=== PATIENT | male | born 1960 | race Caucasian/White ===

== ENCOUNTER 2020-11-22 01:20 | Emergency (ER) | payer OTHER | END 2020-11-22 03:55 | LOC: CSHERS 01:20 | DX: R41.82 Altered mental status, unspecified (principal); I10 Essential (primary) hypertension; E11.9 Type 2 diabetes mellitus without complications; I25.10 Atherosclerotic heart disease of native coronary artery without angina pectoris; J44.9 Chronic obstructive pulmonary disease, unspecified; Z79.4 Long term (current) use of insulin; Z79.82 Long term (current) use of aspirin; Z79.899 Other long term (current) drug therapy | CPT/HCPCS: 70450; 93005 ==

== ENCOUNTER 2022-09-24 06:12 | Emergency (ER) | payer OTHER ==
[2022-09-24 07:04] LABS: #Monocytes 0.6 10x3/uL (0.0-1.1); #Neutrophils 7.6 10x3/uL (1.5-8.4); %Basophils 0.2 % (0.0-2.0); %Eosinophils 0.3 % (0.0-6.0); %Lymphocytes 12.5 % (18.0-47.0); %Neutrophils 80.7 % (40.0-75.0); Hemoglobin 12.9 g/dL (13.5-17.5); Mean Corpuscular HGB CONC 33.9 g/dL (32.0-36.0); Mean Corpuscular Hemoglobin 29.9 pg (27.0-33.0); Mean Corpuscular Volume 88.2 fl (81.2-95.1); Mean Platelet Volume 9.3 fl (7.4-10.4); Platelet Count 168 10x3/uL (150-450); RBC Distribution Width 13.4 % (11.5-14.5); Red Blood Cell (RBC) Count 4.32 10x6/uL (4.32-5.72); White Blood Cell (WBC) Count 9.4 10x3/uL (3.5-10.5)
[2022-09-24 07:22] LABS: Acetaminophen Less than 10.0 mcg/mL (10.0-30.0); Alcohol Less than 10 mg/dL (Less than 10); Magnesium 2.1 mg/dL (1.6-2.6); Salicylate Less than 8.0 mg/dL (15.0-30.0)
[2022-09-24 07:24] LABS: ALT (SGPT) 9 U/L (8-55); AST (SGOT) 12 U/L (5-34); Albumin 3.9 g/dL (3.4-4.8); Alcohol Less than 10 mg/dL (Less than 10); Alkaline Phosphatase 80 U/L (40-110); Anion Gap 17 mmol/L (10-20); BUN (Urea Nitrogen) 26 mg/dL (8.4-25.7); Calc. Creatinine Clearance 0 mL/min (70-130); Calcium 9.1 mg/dL (7.8-10.44); Carbon Dioxide 25 mmol/L (23-31); Chloride 102 mmol/L (98-107); Estimated GFR 86; Globulin 3.3 g/dL (2.4-3.5); Glucose 235 mg/dL (80-115); Potassium 4.8 mmol/L (3.5-5.1); Protein, Total 7.2 g/dL (5.8-8.1); Sodium 139 mmol/L (136-145)
[2022-09-24 07:34] LABS: Bilirubin Neg (Negative); Blood, Urine Negative (Negative); Clarity Clear (Clear); Glucose, Urine (Dipstick) 50 mg/dL (Negative); Ketone, Urine 15 mg/dL (Negative); Leukocyte 25 (Negative); Nitrite Negative (Negative); Protein, Urine (Dipstick) 100 mg/dl (Neg-Trace)
[2022-09-24 07:40] LABS: Bilirubin, Total 0.5 mg/dL (0.2-1.2)
[2022-09-24 07:44] LABS: Amphetamine Not Detected (NotDetected); Barbiturates Screen Not Detected (NotDetected); Benzodiazepine Screen Not Detected (NotDetected); Cocaine Metabolite Screen Not Detected (NotDetected); Methadone Not Detected (NotDetected); Methamphetamine Not Detected (NotDetected); Opiate Screen Not Detected (NotDetected); Oxycodone Screen Not Detected (NotDetected); Phencyclidine (PCP) Not Detected (NotDetected); THC/Cannabinoid Screen Not Detected (NotDetected); Tricyclic Screen Not Detected (NotDetected)
[2022-09-24 07:49] LABS: RBC/HPF 0-3 HPF (0-3); Squamous Epithelial 0-3 HPF (0-3); WBC/HPF 0-3 HPF (0-3)
[2022-09-24 07:50] LABS: Bacteria/HPF None Seen HPF (None Seen)
== END 2022-09-24 13:17 ==
LOC: CSHERS 06:12 → EEVIPCON 06:12 → CSHERS 13:17
DX: R40.0 Somnolence (principal); T42.6X5A Adverse effect of other antiepileptic and sedative-hypnotic drugs, initial encounter; I25.10 Atherosclerotic heart disease of native coronary artery without angina pectoris; J44.9 Chronic obstructive pulmonary disease, unspecified; I10 Essential (primary) hypertension; K21.9 Gastro-esophageal reflux disease without esophagitis; E07.9 Disorder of thyroid, unspecified; Z79.84 Long term (current) use of oral hypoglycemic drugs; Z79.899 Other long term (current) drug therapy
CPT/HCPCS: 36415; 80053; 80164; 80306; 80307; 81003; 81015; 82140; 83605; 83735; 85025; 93005

== ENCOUNTER 2022-10-07 00:42 | Inpatient (IN) | payer OTHER ==
[2022-10-07] MEDS ORDERED: NOREPINEPHRINE 8 MG/250 ML-D5W 250 ML ONE (01:41)
[2022-10-07 02:18] LABS: #Monocytes 0.5 10x3/uL (0.0-1.1); #Neutrophils 7.5 10x3/uL (1.5-8.4); %Basophils 0.2 % (0.0-2.0); %Eosinophils 0.1 % (0.0-6.0); %Lymphocytes 12.8 % (18.0-47.0); %Monocytes 4.9 % (0.0-10.0); %Neutrophils 81.6 % (40.0-75.0); Hemoglobin 11.9 g/dL (13.5-17.5); Mean Corpuscular HGB CONC 33.8 g/dL (32.0-36.0); Mean Corpuscular Hemoglobin 29.7 pg (27.0-33.0); Mean Corpuscular Volume 87.8 fl (81.2-95.1); Mean Platelet Volume 9.7 fl (7.4-10.4); Platelet Count 195 10x3/uL (150-450); RBC Distribution Width 13.3 % (11.5-14.5); Red Blood Cell (RBC) Count 4.01 10x6/uL (4.32-5.72); White Blood Cell (WBC) Count 9.2 10x3/uL (3.5-10.5)
[2022-10-07 02:28] LABS: PTT 21.7 sec (22.0-33.0); Prothrombin Time 10.9 sec (9.5-12.1)
[2022-10-07 02:30] LABS: Acetaminophen Less than 10.0 mcg/mL (10.0-30.0); Alcohol Less than 10 mg/dL (Less than 10); Salicylate Less than 8.0 mg/dL (15.0-30.0)
[2022-10-07 02:32] LABS: ALT (SGPT) 11 U/L (8-55); AST (SGOT) 14 U/L (5-34); Albumin 3.9 g/dL (3.4-4.8); Alkaline Phosphatase 74 U/L (40-110); Anion Gap 15 mmol/L (10-20); BUN (Urea Nitrogen) 21 mg/dL (8.4-25.7); Bilirubin, Total 0.6 mg/dL (0.2-1.2); Calc. Creatinine Clearance 0 mL/min (70-130); Calcium 9.1 mg/dL (7.8-10.44); Carbon Dioxide 24 mmol/L (23-31); Chloride 103 mmol/L (98-107); Estimated GFR 44; Globulin 2.8 g/dL (2.4-3.5); Glucose 169 mg/dL (80-115); Lipase 21 U/L (8-78); Potassium 4.3 mmol/L (3.5-5.1); Protein, Total 6.7 g/dL (5.8-8.1); Sodium 138 mmol/L (136-145)
[2022-10-07 03:32] LABS: Magnesium 1.6 mg/dL (1.6-2.6)
[2022-10-07 03:45] LABS: SARS-CoV-2 NAA Rapid Test DETECTED (NotDetected)
[2022-10-07 03:50] LABS: Bilirubin Neg (Negative); Blood, Urine Negative (Negative); Clarity Slightly Cloudy (Clear); Glucose, Urine (Dipstick) 100 mg/dL (Negative); Ketone, Urine Negative (Negative); Leukocyte Negative (Negative); Nitrite Negative (Negative); Protein, Urine (Dipstick) 100 mg/dl (Neg-Trace); Specific Gravity, Urine 1.015 (1.005-1.030); Urobilinogen Normal mg/dL (Less than 2)
[2022-10-07] MEDS ORDERED: cefTRIAXone\\ROCEPHIN 2 GM VIAL ONE (03:50)
[2022-10-07] MEDS ORDERED: Cefepime 2 GM VIAL ONE ×2 (03:50→03:58)
[2022-10-07 04:00] LABS: Amphetamine Not Detected (NotDetected); Barbiturates Screen Not Detected (NotDetected); Benzodiazepine Screen Not Detected (NotDetected); Cocaine Metabolite Screen Not Detected (NotDetected); Methadone Not Detected (NotDetected); Methamphetamine Not Detected (NotDetected); Opiate Screen Not Detected (NotDetected); Oxycodone Screen Not Detected (NotDetected); Phencyclidine (PCP) Not Detected (NotDetected); THC/Cannabinoid Screen Not Detected (NotDetected); Tricyclic Screen Not Detected (NotDetected)
[2022-10-07 04:08] LABS: Bacteria/HPF 4+ HPF (None Seen); RBC/HPF 0-3 HPF (0-3); Squamous Epithelial 0-3 HPF (0-3)
[2022-10-07] MEDS ORDERED: Vancomycin 1 GM VIAL ONE (04:14)
[2022-10-07] MEDS ORDERED: Dextrose 5% in Water 1,000 ML IV PRN (04:23)
[2022-10-07] MEDS ORDERED: Dextrose 50% Abboject 50 ML SYRINGE SLOW IVP PRN (04:23)
[2022-10-07] MEDS ORDERED: Ondansetron PF 4 MG/2 ML Vial IVP PRN (04:23)
[2022-10-07] MEDS ORDERED: Acetaminophen 650 MG Suppository PR PRN (04:23)
[2022-10-07] MEDS ORDERED: Propofol 1,000 MG/100 ML VIAL IV PRN (04:43)
[2022-10-07] MEDS ORDERED: Ipratropium/Albuterol 3 ML NEB NEB PRN (04:48)
[2022-10-07 05:24] LABS: ALV-art Gradient 224.775 mmHg (0-20); Actual Bicarbonate (HCO3a) 24.8 mEq/L (22-28); CO2 Tension 36.9 mmHg (35.0-45.0); Calcium, Ionized (arterial) 1.11 mmol/L (1.12-1.30); Carboxyhemoglobin (COHb) 0.2 gm% (0.0-3.0); Hemoglobin (Hb) 13.5 g/dL (14.0-18.0); O2 Tension (PaO2), arterial 156.9 mmHg (> 80.0); Potassium - ABG Lab 4.1 mmol/L (3.70-5.30); Puncture Site RRA; pH, Arterial 7.45 (7.35-7.45)
[2022-10-07] MEDS ORDERED: Propofol 1,000 MG/100 ML VIAL IV ONE (05:46)
[2022-10-07] MEDS ORDERED: Rocuronium Bromide 10 MG/ML (10ML VIAL) ONE (06:30)
[2022-10-07] MEDS ORDERED: PROPOFOL 200 MG/20 ML VIAL ONE (06:30)
[2022-10-07] MEDS ORDERED: Magnesium 2 GM/50 ML(in water) 2 GM in Premix Bag 1 BAG IVPB SCH (08:15)
[2022-10-07] MEDS: Clopidogrel Bisulfate 75 MG TAB PO SCH (08:19)
[2022-10-07] MEDS: Sodium Chloride 0.9% 1,000 ML IV SCH ×3 (08:19→19:54)
[2022-10-07] MEDS: Aspirin 81 mg Enteric Coated Tablet PO SCH (08:19)
[2022-10-07] MEDS ORDERED: Famotidine/PF 20 mg/2ml Vial SLOW IVP SCH (09:00)
[2022-10-07] MEDS ORDERED: FLU VACC QS2022-23(6MOS UP)/PF 60 MCG/0.5 ML SYRINGE IM ONE (10:00)
[2022-10-07] MEDS ORDERED: Piperacillin/Tazobactam 3.375 GM in Sodium Chloride 0.9% 100 ML IVPB SCH (16:00)
[2022-10-07] MEDS ORDERED: Cefepime 1 GM in Sodium Chloride 0.9% 100 ML IVPB SCH (16:00)
[2022-10-07] MEDS ORDERED: Electrolyte Replacement Protocol IVPB PRN (16:51)
[2022-10-07] MEDS ORDERED: Morphine 2 MG/ML VIAL SLOW IVP PRN (17:00)
[2022-10-07] MEDS ORDERED: Propofol BOLUS 1,000 MG/100 ML VIAL IV PRN (17:00)
[2022-10-07] MEDS ORDERED: FENTANYL 2,000MCG/100-0.9%NACL 100 ML IVPB SCH (17:00)
[2022-10-07] MEDS ORDERED: Ventilator Sedation Protocol 1 EACH FS PRN (17:00)
[2022-10-07] MEDS ORDERED: DISCONTINUE PREVIOUS NARCOTIC PAIN MEDICATIONS AND BENZODIAZEPINES FS SCH (17:00)
[2022-10-07] MEDS ORDERED: Lorazepam 2 MG/ML VIAL SLOW IVP PRN (17:00)
[2022-10-07] MEDS ORDERED: Fentanyl BOLUS 250 ML IVPB PRN (17:00)
[2022-10-07] MEDS ORDERED: Iopamidol 370 76% 100 ML VIAL ONE (18:20)
[2022-10-07] MEDS: Piperacillin/Tazobactam 3.375 GM in Sodium Chloride 0.9% 100 ML IVPB SCH (19:54)
[2022-10-07] MEDS: Propofol 1,000 MG/100 ML VIAL IV PRN (20:00)
[2022-10-08] MEDS: Propofol 1,000 MG/100 ML VIAL IV PRN (02:46)
[2022-10-08] MEDS: Piperacillin/Tazobactam 3.375 GM in Sodium Chloride 0.9% 100 ML IVPB SCH ×3 (03:26→20:33)
[2022-10-08 04:57] LABS: #Eosinphils 0.4 10x3/uL (0.0-0.5); #Monocytes 0.6 10x3/uL (0.0-1.1); %Basophils 0.4 % (0.0-2.0); %Eosinophils 3.8 % (0.0-6.0); %Lymphocytes 23.1 % (18.0-47.0); %Monocytes 6.8 % (0.0-10.0); %Neutrophils 65.6 % (40.0-75.0); Hemoglobin 10.7 g/dL (13.5-17.5); Mean Corpuscular HGB CONC 33.3 g/dL (32.0-36.0); Mean Corpuscular Hemoglobin 29.8 pg (27.0-33.0); Mean Corpuscular Volume 89.4 fl (81.2-95.1); Platelet Count 159 10x3/uL (150-450); RBC Distribution Width 13.6 % (11.5-14.5); Red Blood Cell (RBC) Count 3.59 10x6/uL (4.32-5.72); White Blood Cell (WBC) Count 9.1 10x3/uL (3.5-10.5)
[2022-10-08 05:06] LABS: Anion Gap 13 mmol/L (10-20); BUN (Urea Nitrogen) 13 mg/dL (8.4-25.7); Calc. Creatinine Clearance 120 mL/min (70-130); Calcium 8.2 mg/dL (7.8-10.44); Carbon Dioxide 23 mmol/L (23-31); Chloride 108 mmol/L (98-107); Estimated GFR 97; Glucose 164 mg/dL (80-115); Phosphorus 2.3 mg/dL (2.3-4.7); Potassium 3.5 mmol/L (3.5-5.1); Sodium 140 mmol/L (136-145)
[2022-10-08] MEDS ORDERED: Magnesium 2 GM/50 ML(in water) 2 GM in Premix Bag 1 BAG IVPB SCH (06:00)
[2022-10-08] MEDS: Potassium Chloride 20 MEQ in Premix Bag 1 BAG IVPB SCH ×2 (06:32→09:18)
[2022-10-08] MEDS: Sodium Chloride 0.9% 1,000 ML IV SCH (06:33)
[2022-10-08] MEDS ORDERED: Famotidine/PF 20 mg/2ml Vial SLOW IVP SCH (09:00)
[2022-10-08] MEDS: Aspirin 81 mg Enteric Coated Tablet PO SCH (09:19)
[2022-10-08] MEDS: Clopidogrel Bisulfate 75 MG TAB PO SCH (09:19)
[2022-10-08] MEDS: Dexmedetomidine In 0.9 % NaCl 100 ML IVPB SCH ×3 (11:25→23:20)
[2022-10-08] MEDS ORDERED: Furosemide 40 MG/4 ML VIAL SLOW IVP SCH (11:30)
[2022-10-08 12:38] LABS: ALV-art Gradient 155.625 mmHg (0-20); Actual Bicarbonate (HCO3a) 24.3 mEq/L (22-28); Base Excess (BEa) -0.1 mEq/L (-2.0 to +3.0); CO2 Tension 38.7 mmHg (35.0-45.0); Calcium, Ionized (arterial) 1.14 mmol/L (1.12-1.30); Carboxyhemoglobin (COHb) 0.3 gm% (0.0-3.0); Hemoglobin (Hb) 13.1 g/dL (14.0-18.0); O2 Tension (PaO2), arterial 81.2 mmHg (> 80.0); Potassium - ABG Lab 4.3 mmol/L (3.70-5.30); Puncture Site RRA; pH, Arterial 7.42 (7.35-7.45)
[2022-10-08 16:21] LABS: ALV-art Gradient 153.025 mmHg (0-20); Base Excess (BEa) 0.9 mEq/L (-2.0 to +3.0); CO2 Tension 38.3 mmHg (35.0-45.0); Carboxyhemoglobin (COHb) 0.3 gm% (0.0-3.0); Hemoglobin (Hb) 12.2 g/dL (14.0-18.0); O2 Tension (PaO2), arterial 84.3 mmHg (> 80.0); Potassium - ABG Lab 4.2 mmol/L (3.70-5.30); Puncture Site RRA; pH, Arterial 7.43 (7.35-7.45)
[2022-10-08] MEDS: Famotidine/PF 20 mg/2ml Vial SLOW IVP SCH (20:33)
[2022-10-09] MEDS: Dexmedetomidine In 0.9 % NaCl 100 ML IVPB SCH ×6 (00:55→23:52)
[2022-10-09] MEDS: Piperacillin/Tazobactam 3.375 GM in Sodium Chloride 0.9% 100 ML IVPB SCH ×3 (04:02→19:27)
[2022-10-09 04:32] LABS: ALT (SGPT) 11 U/L (8-55); AST (SGOT) 15 U/L (5-34); Albumin 3.3 g/dL (3.4-4.8); Alkaline Phosphatase 60 U/L (40-110); Anion Gap 12 mmol/L (10-20); BUN (Urea Nitrogen) 12 mg/dL (8.4-25.7); Bilirubin, Total 0.7 mg/dL (0.2-1.2); Calc. Creatinine Clearance 111 mL/min (70-130); Calcium 8.3 mg/dL (7.8-10.44); Carbon Dioxide 25 mmol/L (23-31); Chloride 106 mmol/L (98-107); Estimated GFR 89; Glucose 193 mg/dL (80-115); Magnesium 1.8 mg/dL (1.6-2.6); Potassium 4.1 mmol/L (3.5-5.1); Protein, Total 6.3 g/dL (5.8-8.1); Sodium 139 mmol/L (136-145)
[2022-10-09 04:39] LABS: #Eosinphils 0.4 10x3/uL (0.0-0.5); #Monocytes 0.6 10x3/uL (0.0-1.1); #Neutrophils 6.5 10x3/uL (1.5-8.4); %Basophils 0.2 % (0.0-2.0); %Eosinophils 4.5 % (0.0-6.0); %Lymphocytes 13.6 % (18.0-47.0); %Monocytes 7.2 % (0.0-10.0); %Neutrophils 73.8 % (40.0-75.0); Hemoglobin 11.2 g/dL (13.5-17.5); Mean Corpuscular HGB CONC 33.8 g/dL (32.0-36.0); Mean Corpuscular Hemoglobin 30.1 pg (27.0-33.0); Mean Platelet Volume 9.6 fl (7.4-10.4); Platelet Count 149 10x3/uL (150-450); RBC Distribution Width 13.2 % (11.5-14.5); Red Blood Cell (RBC) Count 3.72 10x6/uL (4.32-5.72); White Blood Cell (WBC) Count 8.9 10x3/uL (3.5-10.5)
[2022-10-09] MEDS ORDERED: Magnesium 2 GM/50 ML(in water) 2 GM in Premix Bag 1 BAG IVPB SCH (06:00)
[2022-10-09] MEDS: Aspirin 81 mg Enteric Coated Tablet PO SCH (08:24)
[2022-10-09] MEDS: Famotidine/PF 20 mg/2ml Vial SLOW IVP SCH ×2 (08:24→20:29)
[2022-10-09] MEDS: Clopidogrel Bisulfate 75 MG TAB PO SCH (08:24)
[2022-10-09] MEDS: HumaLOG 300 UNITS/3 ML VIAL SC PRN ×5 (08:25→23:51)
[2022-10-09] MEDS ORDERED: Divalproex Sodium 250 MG (DR) TAB PO SCH (10:15)
[2022-10-09] MEDS: Metoprolol Tartrate 25 MG TAB PO SCH (20:29)
[2022-10-09] MEDS: Atorvastatin Calcium 40 MG TAB PO SCH (20:29)
[2022-10-09] MEDS: Aripiprazole 10 MG TAB PO SCH (20:36)
[2022-10-10] MEDS: Piperacillin/Tazobactam 3.375 GM in Sodium Chloride 0.9% 100 ML IVPB SCH ×2 (03:28→11:51)
[2022-10-10] MEDS: Dexmedetomidine In 0.9 % NaCl 100 ML IVPB SCH ×8 (03:43→23:10)
[2022-10-10 04:54] LABS: #Eosinphils 0.4 10x3/uL (0.0-0.5); #Monocytes 0.6 10x3/uL (0.0-1.1); #Neutrophils 6.5 10x3/uL (1.5-8.4); %Basophils 0.5 % (0.0-2.0); %Eosinophils 4.7 % (0.0-6.0); %Lymphocytes 10.9 % (18.0-47.0); %Monocytes 7.5 % (0.0-10.0); %Neutrophils 75.9 % (40.0-75.0); Hemoglobin 11.6 g/dL (13.5-17.5); Mean Corpuscular HGB CONC 34.1 g/dL (32.0-36.0); Mean Corpuscular Hemoglobin 29.7 pg (27.0-33.0); Mean Platelet Volume 9.6 fl (7.4-10.4); Platelet Count 169 10x3/uL (150-450); RBC Distribution Width 12.9 % (11.5-14.5); Red Blood Cell (RBC) Count 3.91 10x6/uL (4.32-5.72); White Blood Cell (WBC) Count 8.5 10x3/uL (3.5-10.5)
[2022-10-10 05:10] LABS: ALT (SGPT) 7 U/L (8-55); AST (SGOT) 14 U/L (5-34); Albumin 3.3 g/dL (3.4-4.8); Alkaline Phosphatase 66 U/L (40-110); Anion Gap 12 mmol/L (10-20); BUN (Urea Nitrogen) 12 mg/dL (8.4-25.7); Bilirubin, Total 0.7 mg/dL (0.2-1.2); Calc. Creatinine Clearance 119 mL/min (70-130); Calcium 8.5 mg/dL (7.8-10.44); Carbon Dioxide 23 mmol/L (23-31); Chloride 104 mmol/L (98-107); Estimated GFR 96; Globulin 3.3 g/dL (2.4-3.5); Glucose 165 mg/dL (80-115); Magnesium 1.8 mg/dL (1.6-2.6); Protein, Total 6.6 g/dL (5.8-8.1); Sodium 135 mmol/L (136-145)
[2022-10-10] MEDS: HumaLOG 300 UNITS/3 ML VIAL SC PRN (05:17)
[2022-10-10] MEDS ORDERED: Magnesium 2 GM/50 ML(in water) 2 GM in Premix Bag 1 BAG IVPB SCH (06:00)
[2022-10-10] MEDS: Aspirin 81 mg Enteric Coated Tablet PO SCH (07:48)
[2022-10-10] MEDS: Famotidine/PF 20 mg/2ml Vial SLOW IVP SCH ×2 (07:48→20:38)
[2022-10-10] MEDS: Metoprolol Tartrate 25 MG TAB PO SCH ×2 (07:48→20:39)
[2022-10-10] MEDS: Furosemide 40 MG TAB PO SCH (07:48)
[2022-10-10] MEDS: Clopidogrel Bisulfate 75 MG TAB PO SCH (07:49)
[2022-10-10] MEDS: Divalproex Sodium 250 MG (DR) TAB PO SCH (07:53)
[2022-10-10] MEDS: Lisinopril 10 MG TAB PO SCH (08:59)
[2022-10-10] MEDS: Aripiprazole 10 MG TAB PO SCH (20:37)
[2022-10-10] MEDS: Atorvastatin Calcium 40 MG TAB PO SCH (20:39)
[2022-10-11] MEDS: Dexmedetomidine In 0.9 % NaCl 100 ML IVPB SCH ×4 (02:51→10:03)
[2022-10-11 04:03] LABS: #Eosinphils 0.3 10x3/uL (0.0-0.5); #Monocytes 0.6 10x3/uL (0.0-1.1); %Basophils 0.3 % (0.0-2.0); %Eosinophils 4.5 % (0.0-6.0); %Lymphocytes 10.1 % (18.0-47.0); %Monocytes 9.5 % (0.0-10.0); %Neutrophils 75.4 % (40.0-75.0); Mean Corpuscular HGB CONC 34.4 g/dL (32.0-36.0); Mean Corpuscular Hemoglobin 29.7 pg (27.0-33.0); Mean Corpuscular Volume 86.5 fl (81.2-95.1); Mean Platelet Volume 9.6 fl (7.4-10.4); Platelet Count 177 10x3/uL (150-450); RBC Distribution Width 12.8 % (11.5-14.5); White Blood Cell (WBC) Count 6.6 10x3/uL (3.5-10.5)
[2022-10-11 04:15] LABS: ALT (SGPT) 7 U/L (8-55); AST (SGOT) 14 U/L (5-34); Albumin 3.1 g/dL (3.4-4.8); Alkaline Phosphatase 62 U/L (40-110); Anion Gap 15 mmol/L (10-20); BUN (Urea Nitrogen) 18 mg/dL (8.4-25.7); Bilirubin, Total 0.7 mg/dL (0.2-1.2); Calc. Creatinine Clearance 117 mL/min (70-130); Calcium 8.3 mg/dL (7.8-10.44); Carbon Dioxide 21 mmol/L (23-31); Chloride 108 mmol/L (98-107); Estimated GFR 96; Globulin 3.3 g/dL (2.4-3.5); Glucose 185 mg/dL (80-115); Magnesium 1.8 mg/dL (1.6-2.6); Potassium 3.7 mmol/L (3.5-5.1); Protein, Total 6.4 g/dL (5.8-8.1); Sodium 140 mmol/L (136-145)
[2022-10-11] MEDS ORDERED: Magnesium 2 GM/50 ML(in water) 2 GM in Premix Bag 1 BAG IVPB SCH (06:00)
[2022-10-11] MEDS: Divalproex Sodium 250 MG (DR) TAB PO SCH (08:42)
[2022-10-11] MEDS: Lisinopril 10 MG TAB PO SCH (08:43)
[2022-10-11] MEDS: Metoprolol Tartrate 25 MG TAB PO SCH ×2 (08:43→20:17)
[2022-10-11] MEDS: Furosemide 40 MG TAB PO SCH (08:44)
[2022-10-11] MEDS: Aspirin 81 mg Enteric Coated Tablet PO SCH (08:44)
[2022-10-11] MEDS: Famotidine/PF 20 mg/2ml Vial SLOW IVP SCH ×2 (08:44→20:17)
[2022-10-11] MEDS: Clopidogrel Bisulfate 75 MG TAB PO SCH (08:44)
[2022-10-11] MEDS: HumaLOG 300 UNITS/3 ML VIAL SC PRN ×3 (09:03→16:27)
[2022-10-11] MEDS: Loperamide HCl 2 MG CAP PO PRN ×3 (13:42→20:16)
[2022-10-11] MEDS ORDERED: Saccharomyces boulardii 250 MG CAP PO SCH (13:45)
[2022-10-11] MEDS: Aripiprazole 10 MG TAB PO SCH (20:15)
[2022-10-11] MEDS: Atorvastatin Calcium 40 MG TAB PO SCH (20:17)
[2022-10-11] MEDS ORDERED: Melatonin 3 MG TAB PO SCH (23:00)
[2022-10-12 03:54] LABS: #Eosinphils 0.2 10x3/uL (0.0-0.5); #Monocytes 0.9 10x3/uL (0.0-1.1); #Neutrophils 7.3 10x3/uL (1.5-8.4); %Basophils 0.2 % (0.0-2.0); %Eosinophils 2.1 % (0.0-6.0); %Lymphocytes 10.1 % (18.0-47.0); %Monocytes 9.3 % (0.0-10.0); Hemoglobin 12.7 g/dL (13.5-17.5); Mean Corpuscular HGB CONC 34.3 g/dL (32.0-36.0); Mean Corpuscular Hemoglobin 29.6 pg (27.0-33.0); Mean Corpuscular Volume 86.2 fl (81.2-95.1); Platelet Count 200 10x3/uL (150-450); Red Blood Cell (RBC) Count 4.29 10x6/uL (4.32-5.72); White Blood Cell (WBC) Count 9.3 10x3/uL (3.5-10.5)
[2022-10-12 04:07] LABS: ALT (SGPT) 8 U/L (8-55); AST (SGOT) 21 U/L (5-34); Albumin 3.3 g/dL (3.4-4.8); Alkaline Phosphatase 67 U/L (40-110); Anion Gap 16 mmol/L (10-20); BUN (Urea Nitrogen) 13 mg/dL (8.4-25.7); Bilirubin, Total 0.5 mg/dL (0.2-1.2); Calc. Creatinine Clearance 116 mL/min (70-130); Calcium 8.5 mg/dL (7.8-10.44); Carbon Dioxide 20 mmol/L (23-31); Chloride 108 mmol/L (98-107); Estimated GFR 96; Globulin 3.6 g/dL (2.4-3.5); Glucose 146 mg/dL (80-115); Magnesium 1.7 mg/dL (1.6-2.6); Potassium 3.7 mmol/L (3.5-5.1); Protein, Total 6.9 g/dL (5.8-8.1); Sodium 140 mmol/L (136-145)
[2022-10-12] MEDS ORDERED: Magnesium 2 GM/50 ML(in water) 2 GM in Premix Bag 1 BAG IVPB SCH (06:00)
[2022-10-12] MEDS: Divalproex Sodium 250 MG (DR) TAB PO SCH (07:45)
[2022-10-12] MEDS: Loperamide HCl 2 MG CAP PO PRN (07:45)
[2022-10-12] MEDS: Famotidine/PF 20 mg/2ml Vial SLOW IVP SCH ×2 (07:45→20:07)
[2022-10-12] MEDS: Clopidogrel Bisulfate 75 MG TAB PO SCH (07:46)
[2022-10-12] MEDS: Aspirin 81 mg Enteric Coated Tablet PO SCH (07:46)
[2022-10-12] MEDS: Saccharomyces boulardii 250 MG CAP PO SCH (07:46)
[2022-10-12] MEDS: Metoprolol Tartrate 25 MG TAB PO SCH ×2 (07:46→20:07)
[2022-10-12] MEDS: Lisinopril 10 MG TAB PO SCH (07:46)
[2022-10-12] MEDS: Furosemide 40 MG TAB PO SCH (07:47)
[2022-10-12] MEDS: HumaLOG 300 UNITS/3 ML VIAL SC PRN ×4 (08:15→20:07)
[2022-10-12] MEDS: Magnesium Oxide 400 MG TAB PO SCH (08:54)
[2022-10-12] MEDS: Temazepam 15 MG CAP PO PRN (20:07)
[2022-10-12] MEDS: Atorvastatin Calcium 40 MG TAB PO SCH (20:07)
[2022-10-12] MEDS: Aripiprazole 10 MG TAB PO SCH (20:07)
[2022-10-13] MEDS: Acetaminophen 325 MG TAB PO PRN ×3 (00:57→20:08)
[2022-10-13 04:23] LABS: Magnesium 1.7 mg/dL (1.6-2.6); Potassium 3.3 mmol/L (3.5-5.1)
[2022-10-13] MEDS ORDERED: Potassium Chloride 20 MEQ TAB PO SCH (06:00)
[2022-10-13] MEDS ORDERED: Magnesium 2 GM/50 ML(in water) 2 GM in Premix Bag 1 BAG IVPB SCH (06:00)
[2022-10-13] MEDS: Famotidine/PF 20 mg/2ml Vial SLOW IVP SCH ×2 (08:07→20:06)
[2022-10-13] MEDS: Lisinopril 10 MG TAB PO SCH (08:08)
[2022-10-13] MEDS: Metoprolol Tartrate 25 MG TAB PO SCH ×2 (08:08→20:07)
[2022-10-13] MEDS: Magnesium Oxide 400 MG TAB PO SCH (08:08)
[2022-10-13] MEDS: Furosemide 40 MG TAB PO SCH (08:08)
[2022-10-13] MEDS: Clopidogrel Bisulfate 75 MG TAB PO SCH (08:14)
[2022-10-13] MEDS: Saccharomyces boulardii 250 MG CAP PO SCH (08:14)
[2022-10-13] MEDS: Aspirin 81 mg Enteric Coated Tablet PO SCH (08:14)
[2022-10-13] MEDS: Divalproex Sodium 250 MG (DR) TAB PO SCH (08:16)
[2022-10-13] MEDS: HumaLOG 300 UNITS/3 ML VIAL SC PRN ×4 (08:30→22:23)
[2022-10-13] MEDS: Atorvastatin Calcium 40 MG TAB PO SCH (20:06)
[2022-10-13] MEDS: Aripiprazole 10 MG TAB PO SCH (20:06)
[2022-10-13] MEDS: Temazepam 15 MG CAP PO PRN ×2 (20:07→22:14)
[2022-10-14] MEDS: Acetaminophen 325 MG TAB PO PRN ×3 (00:42→20:34)
[2022-10-14 04:54] LABS: Magnesium 1.7 mg/dL (1.6-2.6); Potassium 3.6 mmol/L (3.5-5.1)
[2022-10-14] MEDS: HumaLOG 300 UNITS/3 ML VIAL SC PRN ×4 (06:23→20:37)
[2022-10-14] MEDS ORDERED: Magnesium 2 GM/50 ML BAG (IN WATER) ONE (07:59)
[2022-10-14] MEDS ORDERED: Magnesium 2 GM/50 ML(in water) 2 GM in Premix Bag 1 BAG IVPB SCH (08:00)
[2022-10-14] MEDS: Famotidine/PF 20 mg/2ml Vial SLOW IVP SCH ×2 (08:06→20:34)
[2022-10-14] MEDS: Lisinopril 10 MG TAB PO SCH (08:10)
[2022-10-14] MEDS: Magnesium Oxide 400 MG TAB PO SCH (08:10)
[2022-10-14] MEDS: Metoprolol Tartrate 25 MG TAB PO SCH ×2 (08:10→20:33)
[2022-10-14] MEDS: Furosemide 40 MG TAB PO SCH (08:11)
[2022-10-14] MEDS: Clopidogrel Bisulfate 75 MG TAB PO SCH (08:11)
[2022-10-14] MEDS: Aspirin 81 mg Enteric Coated Tablet PO SCH (08:11)
[2022-10-14] MEDS: Saccharomyces boulardii 250 MG CAP PO SCH (08:12)
[2022-10-14] MEDS: Divalproex Sodium 250 MG (DR) TAB PO SCH (10:19)
[2022-10-14] MEDS: Aripiprazole 10 MG TAB PO SCH (20:33)
[2022-10-14] MEDS: Atorvastatin Calcium 40 MG TAB PO SCH (20:33)
[2022-10-15] MEDS: Acetaminophen 325 MG TAB PO PRN ×2 (01:34→06:03)
[2022-10-15] MEDS: HumaLOG 300 UNITS/3 ML VIAL SC PRN ×2 (06:01→11:33)
[2022-10-15] MEDS: Saccharomyces boulardii 250 MG CAP PO SCH (08:18)
[2022-10-15] MEDS: Magnesium Oxide 400 MG TAB PO SCH (08:18)
[2022-10-15] MEDS: Divalproex Sodium 250 MG (DR) TAB PO SCH (08:18)
[2022-10-15] MEDS: Famotidine/PF 20 mg/2ml Vial SLOW IVP SCH (08:18)
[2022-10-15] MEDS: Furosemide 40 MG TAB PO SCH (08:18)
[2022-10-15] MEDS: Clopidogrel Bisulfate 75 MG TAB PO SCH (08:18)
[2022-10-15] MEDS: Lisinopril 10 MG TAB PO SCH (08:18)
[2022-10-15] MEDS: Aspirin 81 mg Enteric Coated Tablet PO SCH (08:18)
[2022-10-15] MEDS: Metoprolol Tartrate 25 MG TAB PO SCH (08:18)
[2022-10-15 09:58] VITALS: BMI 33.4
[2022-10-15] MEDS ORDERED: Cyclobenzaprine 10 MG TAB PO SCH (10:00)
[2022-10-15] MEDS ORDERED: Ketorolac Tromethamine 30 MG/ML VIAL IVP SCH (10:00)
[2022-10-15] MEDS ORDERED: Lidocaine 5% Patch TD SCH (10:00)
[2022-10-15 11:27] VITALS: BP 138/69; TEMP 97.6
[2022-10-15] MEDS ORDERED: Transdermal Patch Removal TOP SCH (22:00)
== END 2022-10-15 12:53 | DRG 917 ==
LOC: CSHERS 00:42 → EEVIPCON 00:42 → CSHICU 06:36 → CSHTELE 10-13 21:52
PROVIDERS: ADMIT Student in an Organized Health Care Education/Training Program; ATTEND Family Medicine
PROC: 8E0ZXY6 Isolation (ICD-10-PCS; principal; 2022-10-07)
PROC: 0DH67UZ Insertion of Feeding Device into Stomach, Via Natural or Artificial Opening (ICD-10-PCS; 2022-10-07)
PROC: 3E0G76Z Introduction of Nutritional Substance into Upper GI, Via Natural or Artificial Opening (ICD-10-PCS; 2022-10-07)
PROC: 02HV33Z Insertion of Infusion Device into Superior Vena Cava, Percutaneous Approach (ICD-10-PCS; 2022-10-07)
PROC: 3E043XZ Introduction of Vasopressor into Central Vein, Percutaneous Approach (ICD-10-PCS; 2022-10-07)
PROC: 0BH17EZ Insertion of Endotracheal Airway into Trachea, Via Natural or Artificial Opening (ICD-10-PCS; 2022-10-07)
PROC: 5A1945Z Respiratory Ventilation, 24-96 Consecutive Hours (ICD-10-PCS; 2022-10-07)
PROC: 4A133R1 Monitoring of Arterial Saturation, Peripheral, Percutaneous Approach (ICD-10-PCS; 2022-10-07)
DX: T42.6X1A Poisoning by other antiepileptic and sedative-hypnotic drugs, accidental (unintentional), initial encounter (principal); G92.8 Other toxic encephalopathy; J96.01 Acute respiratory failure with hypoxia; U07.1 COVID-19; N17.9 Acute kidney failure, unspecified; N39.0 Urinary tract infection, site not specified; I95.9 Hypotension, unspecified; I10 Essential (primary) hypertension; E78.5 Hyperlipidemia, unspecified; I25.10 Atherosclerotic heart disease of native coronary artery without angina pectoris; J44.9 Chronic obstructive pulmonary disease, unspecified; G47.33 Obstructive sleep apnea (adult) (pediatric); G40.909 Epilepsy, unspecified, not intractable, without status epilepticus; E11.9 Type 2 diabetes mellitus without complications; M19.90 Unspecified osteoarthritis, unspecified site; F20.9 Schizophrenia, unspecified; F32.A Depression, unspecified; R00.1 Bradycardia, unspecified; B96.89 Other specified bacterial agents as the cause of diseases classified elsewhere; G89.29 Other chronic pain; M54.9 Dorsalgia, unspecified; K21.9 Gastro-esophageal reflux disease without esophagitis; Z98.49 Cataract extraction status, unspecified eye; Z88.8 Allergy status to other drugs, medicaments and biological substances; Z91.010 Allergy to peanuts; Z79.82 Long term (current) use of aspirin; Z79.02 Long term (current) use of antithrombotics/antiplatelets; Z79.899 Other long term (current) drug therapy; Z79.4 Long term (current) use of insulin; Z79.84 Long term (current) use of oral hypoglycemic drugs
CPT/HCPCS: 31500; 36415; 36416; 36556; 36600; 70450; 70551; 71045; 71275; 72125; 74174; 74176; 80048; 80053; 80164; 80306; 80307; 81003; 81015; 82140; 82533; 82550; 82805; 83605; 83690; 83735; 84100; 84132; 84443; 84484; 85025; 85610; 85730; 86850; 86900; 86901; 87040; 87076; 87077; 87086; 87186; 93005; 94002; 94003; 94640; 94760; 95816; 95819; 95957; 96365; 96366; 96368; 96376; 99292; J0692; J0696; J1650; J1815; J1885; J1940; J2543; J2704; J3370; J3475; J3480; J3490; J7050; J7620; Q9967; S0028; U0002

== ENCOUNTER 2022-10-22 03:27 | Emergency (ER) | payer OTHER ==
[2022-10-22 04:17] LABS: Bilirubin Neg (Negative); Blood, Urine Negative (Negative); Clarity Clear (Clear); Glucose, Urine (Dipstick) 100 mg/dL (Negative); Ketone, Urine Negative (Negative); Leukocyte Negative (Negative); Nitrite Negative (Negative); Protein, Urine (Dipstick) 30 mg/dl (Neg-Trace); Urobilinogen Normal mg/dL (Less than 2)
[2022-10-22 04:29] LABS: Amphetamine Not Detected (NotDetected); Barbiturates Screen Not Detected (NotDetected); Benzodiazepine Screen Not Detected (NotDetected); Cocaine Metabolite Screen Not Detected (NotDetected); Methadone Not Detected (NotDetected); Methamphetamine Not Detected (NotDetected); Opiate Screen Not Detected (NotDetected); Oxycodone Screen Not Detected (NotDetected); Phencyclidine (PCP) Not Detected (NotDetected); THC/Cannabinoid Screen Not Detected (NotDetected); Tricyclic Screen Not Detected (NotDetected)
[2022-10-22 04:35] LABS: #Basophils 0.1 10x3/uL (0.0-0.2); #Eosinphils 0.2 10x3/uL (0.0-0.5); #Monocytes 0.9 10x3/uL (0.0-1.1); #Neutrophils 11.3 10x3/uL (1.5-8.4); %Basophils 0.3 % (0.0-2.0); %Eosinophils 1.2 % (0.0-6.0); %Lymphocytes 14.1 % (18.0-47.0); %Neutrophils 77.4 % (40.0-75.0); Actual Bicarbonate (HCO3v) 27 mEq/L (22-28); Base Excess 0.4 mEq/L (-2 - +2); Calcium, Ionized (venous) 1.22 mmol/L (1.16-1.32); Chloride (VBG) 106 mmol/L (98-106); Hemoglobin 11.7 g/dL (13.5-17.5); Mean Corpuscular HGB CONC 32.4 g/dL (32.0-36.0); Mean Corpuscular Hemoglobin 29.5 pg (27.0-33.0); Mean Corpuscular Volume 90.9 fl (81.2-95.1); Mean Platelet Volume 8.4 fl (7.4-10.4); Platelet Count 339 10x3/uL (150-450); Potassium (VBG) 4.14 mmol/L (3.70-5.30); Puncture Site Other Site; RapidComm Collect By LAB.YY; Red Blood Cell (RBC) Count 3.97 10x6/uL (4.32-5.72); Sodium 138.4 mmol/L (133-146); White Blood Cell (WBC) Count 14.6 10x3/uL (3.5-10.5); pH (venous) 7.33 (7.32-7.43)
[2022-10-22 04:39] LABS: SARS-CoV-2 NAA Rapid Test Not Detected (NotDetected)
[2022-10-22 04:41] LABS: Bacteria/HPF None Seen HPF (None Seen); RBC/HPF None Seen HPF (0-3); Squamous Epithelial None Seen HPF (0-3); WBC/HPF 0-3 HPF (0-3)
[2022-10-22 04:49] LABS: Acetaminophen Less than 10.0 mcg/mL (10.0-30.0); Alcohol Less than 10 mg/dL (Less than 10); Salicylate Less than 8.0 mg/dL (15.0-30.0)
[2022-10-22 04:50] LABS: ALT (SGPT) 10 U/L (8-55); AST (SGOT) 17 U/L (5-34); Albumin 3.4 g/dL (3.4-4.8); Alkaline Phosphatase 71 U/L (40-110); Anion Gap 13 mmol/L (10-20); BUN (Urea Nitrogen) 15 mg/dL (8.4-25.7); Bilirubin, Total 0.3 mg/dL (0.2-1.2); Calc. Creatinine Clearance 0 mL/min (70-130); Calcium 9.5 mg/dL (7.8-10.44); Carbon Dioxide 25 mmol/L (23-31); Chloride 108 mmol/L (98-107); Estimated GFR 85; Globulin 3.3 g/dL (2.4-3.5); Glucose 165 mg/dL (80-115); Potassium 4.1 mmol/L (3.5-5.1); Protein, Total 6.7 g/dL (5.8-8.1); Sodium 142 mmol/L (136-145)
== END 2022-10-22 08:11 ==
LOC: CSHERS 03:27
DX: R41.82 Altered mental status, unspecified (principal); D72.829 Elevated white blood cell count, unspecified; E11.9 Type 2 diabetes mellitus without complications; E78.5 Hyperlipidemia, unspecified; I25.10 Atherosclerotic heart disease of native coronary artery without angina pectoris; J44.9 Chronic obstructive pulmonary disease, unspecified; I10 Essential (primary) hypertension; K21.9 Gastro-esophageal reflux disease without esophagitis; Z79.899 Other long term (current) drug therapy; Z79.84 Long term (current) use of oral hypoglycemic drugs; Z20.822 Contact with and (suspected) exposure to COVID-19; Z79.82 Long term (current) use of aspirin; Z79.4 Long term (current) use of insulin
CPT/HCPCS: 36415; 51701; 70450; 71045; 80053; 80306; 80307; 81003; 81015; 82140; 82805; 84484; 85025; 87040; 87086; 93005; U0002

== ENCOUNTER 2023-07-22 00:05 | Emergency (ER) | payer OTHER ==
[2023-07-22 00:53] LABS: #Monocytes 0.8 10x3/uL (0.0-1.1); #Neutrophils 10.6 10x3/uL (1.5-8.4); %Basophils 0.2 % (0.0-2.0); %Eosinophils 0.1 % (0.0-6.0); %Lymphocytes 5.6 % (18.0-47.0); %Monocytes 6.6 % (0.0-10.0); %Neutrophils 87.1 % (40.0-75.0); Hematocrit 37.1 % (38.8-50.0); Hemoglobin 12.3 g/dL (13.5-17.5); Mean Corpuscular HGB CONC 33.2 g/dL (32.0-36.0); Mean Corpuscular Hemoglobin 29.6 pg (27.0-33.0); Mean Corpuscular Volume 89.4 fl (81.2-95.1); Mean Platelet Volume 9.2 fl (7.4-10.4); Platelet Count 201 10x3/uL (150-450); RBC Distribution Width 13.4 % (11.5-14.5); Red Blood Cell (RBC) Count 4.15 10x6/uL (4.32-5.72); White Blood Cell (WBC) Count 12.2 10x3/uL (3.5-10.5)
[2023-07-22 01:04] LABS: ALT (SGPT) 8 U/L (8-55); AST (SGOT) 11 U/L (5-34); Albumin 3.8 g/dL (3.4-4.8); Alkaline Phosphatase 71 U/L (40-110); Anion Gap 15 mmol/L (10-20); BUN (Urea Nitrogen) 12 mg/dL (8.4-25.7); Bilirubin, Total 0.4 mg/dL (0.2-1.2); Calc. Creatinine Clearance 0 mL/min (70-130); Carbon Dioxide 26 mmol/L (23-31); Chloride 105 mmol/L (98-107); Estimated GFR 90; Globulin 3.2 g/dL (2.4-3.5); Glucose 251 mg/dL (80-115); Potassium 3.8 mmol/L (3.5-5.1); Sodium 142 mmol/L (136-145)
[2023-07-22 01:05] LABS: Acetaminophen Less than 10 mcg/mL (10.0-30.0); Alcohol Less than 10.0 mg/dL (Less than 10); Lipase 18 U/L (8-78); Salicylate Less than 8.0 mg/dL (15.0-30.0)
[2023-07-22] MEDS ORDERED: Ondansetron PF 4 MG/2 ML Vial ONE (01:15)
[2023-07-22 01:19] LABS: Amphetamine Not Detected (NotDetected); Barbiturates Screen Not Detected (NotDetected); Benzodiazepine Screen Not Detected (NotDetected); Cocaine Metabolite Screen Not Detected (NotDetected); Methadone Not Detected (NotDetected); Methamphetamine Not Detected (NotDetected); Opiate Screen Not Detected (NotDetected); Oxycodone Screen Not Detected (NotDetected); Phencyclidine (PCP) Not Detected (NotDetected); THC/Cannabinoid Screen Not Detected (NotDetected); Tricyclic Screen Not Detected (NotDetected)
[2023-07-22 03:40] LABS: SARS-CoV-2 NAA Rapid Test Not Detected (NotDetected)
== END 2023-07-22 06:55 ==
LOC: CSHERS 00:05
DX: R41.82 Altered mental status, unspecified (principal); T50.905A Adverse effect of unspecified drugs, medicaments and biological substances, initial encounter; E11.9 Type 2 diabetes mellitus without complications; E78.5 Hyperlipidemia, unspecified; I25.10 Atherosclerotic heart disease of native coronary artery without angina pectoris; J44.9 Chronic obstructive pulmonary disease, unspecified; I10 Essential (primary) hypertension; K21.9 Gastro-esophageal reflux disease without esophagitis; Z87.891 Personal history of nicotine dependence; Z79.899 Other long term (current) drug therapy; Z79.82 Long term (current) use of aspirin; Z79.84 Long term (current) use of oral hypoglycemic drugs
CPT/HCPCS: 70450; 71045; 80053; 80306; 80307; 82140; 83690; 83880; 84443; 85025; 93005; 96374; J2405

== ENCOUNTER 2023-08-27 13:23 | Inpatient (IN) | payer OTHER ==
[2023-08-27] MEDS ORDERED: Dextrose 5% in Water 1,000 ML IV PRN ×2 (14:48→14:53)
[2023-08-27] MEDS ORDERED: Acetaminophen 325 MG TAB PO PRN (14:48)
[2023-08-27] MEDS ORDERED: Glucagon 1 MG/ML KIT IM PRN ×2 (14:48→14:53)
[2023-08-27] MEDS ORDERED: Dextrose 50% Abboject 50 ML SYRINGE SLOW IVP PRN ×2 (14:48→14:53)
[2023-08-27] MEDS ORDERED: hydrALAZINE 25 MG TAB PO PRN (14:54)
[2023-08-27 16:00] VITALS: BMI 33.4
[2023-08-27] MEDS: HumaLOG 300 UNITS/3 ML VIAL SC PRN (17:49)
[2023-08-27] MEDS: Ziprasidone 20 MG CAP PO SCH (20:49)
[2023-08-27] MEDS: Atorvastatin Calcium 40 MG TAB PO SCH (20:49)
[2023-08-27] MEDS: Terazosin HCl 5 MG CAP PO SCH (20:50)
[2023-08-27] MEDS: Insulin NPH Human Isophane 100 UNITS/ML (10 ML VIAL) SQ SCH (20:50)
[2023-08-27] MEDS: Famotidine/PF 20 mg/2ml Vial SLOW IVP SCH (20:50)
[2023-08-27] MEDS: traMADol HCl 50 MG TAB PO SCH (21:55)
[2023-08-27] MEDS: Trospium 20 MG TAB PO SCH (21:56)
[2023-08-28 05:09] LABS: #Eosinphils 0.2 10x3/uL (0.0-0.5); #Monocytes 0.7 10x3/uL (0.0-1.1); #Neutrophils 5.7 10x3/uL (1.5-8.4); %Basophils 0.4 % (0.0-2.0); %Eosinophils 2.4 % (0.0-6.0); %Lymphocytes 21.2 % (18.0-47.0); %Neutrophils 67.8 % (40.0-75.0); Hematocrit 33.8 % (38.8-50.0); Hemoglobin 11.2 g/dL (13.5-17.5); Mean Corpuscular HGB CONC 33.1 g/dL (32.0-36.0); Mean Corpuscular Hemoglobin 28.6 pg (27.0-33.0); Mean Corpuscular Volume 86.4 fl (81.2-95.1); Mean Platelet Volume 9.4 fl (7.4-10.4); Platelet Count 166 10x3/uL (150-450); RBC Distribution Width 13.2 % (11.5-14.5); Red Blood Cell (RBC) Count 3.91 10x6/uL (4.32-5.72); White Blood Cell (WBC) Count 8.4 10x3/uL (3.5-10.5)
[2023-08-28 05:23] LABS: Anion Gap 12 mmol/L (10-20); BUN (Urea Nitrogen) 12 mg/dL (8.4-25.7); Calc. Creatinine Clearance 129 mL/min (70-130); Calcium 8.4 mg/dL (7.8-10.44); Carbon Dioxide 26 mmol/L (23-31); Cardiac Risk 3.9 (Less than 4.5); Chloride 103 mmol/L (98-107); Cholesterol 126 mg/dl (< 200 Desired); Estimated GFR 100; Glucose 110 mg/dL (80-115); HDL Cholesterol 32 mg/dL (>60 Neg Risk); LDL Cholesterol, Calculated 81 mg/dL; Potassium 3.7 mmol/L (3.5-5.1); Sodium 137 mmol/L (136-145); Triglycerides 65 mg/dL (Less than 150)
[2023-08-28] MEDS ORDERED: Clopidogrel Bisulfate 75 MG TAB PO SCH (09:00)
[2023-08-28] MEDS: Enoxaparin 40 MG (0.4 mL) SYRINGE SC SCH (09:23)
[2023-08-28] MEDS: Venlafaxine HCl XR 75 MG CAP PO SCH (09:23)
[2023-08-28] MEDS: Clopidogrel Bisulfate 75 MG TAB PO SCH (09:23)
[2023-08-28] MEDS: Insulin NPH Human Isophane 100 UNITS/ML (10 ML VIAL) SQ SCH (09:24)
[2023-08-28] MEDS: Isosorbide Mononitrate 60 MG ER.TAB PO SCH (09:24)
[2023-08-28] MEDS: Aspirin 81 mg Enteric Coated Tablet PO SCH (09:24)
[2023-08-29] MEDS: Isosorbide Mononitrate 30 MG ER.TAB PO SCH (08:52)
[2023-08-29] MEDS ORDERED: Nystatin Powder 15 GM BOT TOP PRN (10:58)
[2023-08-29 12:14] VITALS: TEMP 98.2
[2023-08-29 14:43] VITALS: BP 119/60
== END 2023-08-29 17:20 | DRG 69 ==
LOC: EEVIPCON 13:34 → CSHTELE 13:34
PROVIDERS: ADMIT Internal Medicine; ATTEND Internal Medicine
DX: G45.9 Transient cerebral ischemic attack, unspecified (principal); I10 Essential (primary) hypertension; E11.9 Type 2 diabetes mellitus without complications; B19.20 Unspecified viral hepatitis C without hepatic coma; E78.5 Hyperlipidemia, unspecified; J44.9 Chronic obstructive pulmonary disease, unspecified; I95.9 Hypotension, unspecified; I25.10 Atherosclerotic heart disease of native coronary artery without angina pectoris; Z91.010 Allergy to peanuts; Z88.8 Allergy status to other drugs, medicaments and biological substances; Z79.82 Long term (current) use of aspirin; Z79.4 Long term (current) use of insulin; Z79.899 Other long term (current) drug therapy; Z95.1 Presence of aortocoronary bypass graft; Z90.49 Acquired absence of other specified parts of digestive tract; Z98.49 Cataract extraction status, unspecified eye; Z87.891 Personal history of nicotine dependence; Z82.49 Family history of ischemic heart disease and other diseases of the circulatory system; Z83.3 Family history of diabetes mellitus
CPT/HCPCS: 36415; 36416; 70551; 80048; 80061; 85025; 93306; J1650; J1815; S0028

== ENCOUNTER 2024-02-19 03:55 | Emergency (ER) | payer OTHER ==
[2024-02-19 05:24] LABS: #Basophils 0.02 10x3/uL (0.0-0.2); #Monocytes 0.61 10x3/uL (0.0-1.1); #Neutrophils 6.89 10x3/uL (1.5-8.4); %Basophils 0.2 % (0.0-2.0); %Eosinophils 1.1 % (0.0-6.0); %Lymphocytes 13.5 % (18.0-47.0); %Monocytes 6.9 % (0.0-10.0); %Neutrophils 78.1 % (40.0-75.0); Hematocrit 34.3 % (38.8-50.0); Hemoglobin 11.8 g/dL (13.5-17.5); Mean Corpuscular HGB CONC 34.4 g/dL (32.0-36.0); Mean Corpuscular Hemoglobin 30.9 pg (27.0-33.0); Mean Corpuscular Volume 89.8 fL (81.2-95.1); Mean Platelet Volume 10.5 fL (7.4-10.4); Platelet Count 127 10x3/uL (150-450); RBC Distribution Width 13.2 % (11.5-14.5); Red Blood Cell (RBC) Count 3.82 10x6/uL (4.32-5.72); White Blood Cell (WBC) Count 8.8 10x3/uL (3.5-10.5)
[2024-02-19 05:27] LABS: Acetaminophen Less than 10 mcg/mL (10.0-30.0); Alcohol Less than 10.0 mg/dL (Less than 10); Magnesium 1.7 mg/dL (1.6-2.6); Salicylate Less than 8.0 mg/dL (15.0-30.0)
[2024-02-19 05:28] LABS: ALT (SGPT) 7 U/L (8-55); AST (SGOT) 14 U/L (5-34); Albumin 3.5 g/dL (3.4-4.8); Alkaline Phosphatase 86 U/L (40-110); Anion Gap 15 mmol/L (10-20); BUN (Urea Nitrogen) 17 mg/dL (8.4-25.7); Bilirubin, Total 0.2 mg/dL (0.2-1.2); Calc. Creatinine Clearance 0 mL/min (70-130); Calcium 9.1 mg/dL (7.8-10.44); Carbon Dioxide 23 mmol/L (23-31); Chloride 102 mmol/L (98-107); Estimated GFR 96; Globulin 3.4 g/dL (2.4-3.5); Glucose 184 mg/dL (80-115); Potassium 4.1 mmol/L (3.5-5.1); Protein, Total 6.9 g/dL (5.8-8.1); Sodium 136 mmol/L (136-145)
[2024-02-19 06:12] LABS: Bilirubin Neg (Negative); Blood, Urine Negative (Negative); Clarity Clear (Clear); Glucose, Urine (Dipstick) Normal (Negative); Ketone, Urine Negative (Negative); Leukocyte 100 (Negative); Nitrite Negative (Negative); Protein, Urine (Dipstick) 15 mg/dl (Neg-Trace); Specific Gravity, Urine 1.005 (1.005-1.030); Urobilinogen Normal mg/dL (Less than 2); pH, Urine 6.5 (5.0-9.0)
[2024-02-19 06:21] LABS: Amphetamine Not Detected (NotDetected); Bacteria/HPF None Seen HPF (None Seen); Barbiturates Screen Not Detected (NotDetected); Benzodiazepine Screen Not Detected (NotDetected); CAUTI Indications for Culture Alt mental st,lethar; Cocaine Metabolite Screen Not Detected (NotDetected); Methadone Not Detected (NotDetected); Methamphetamine Not Detected (NotDetected); Opiate Screen Not Detected (NotDetected); Oxycodone Screen Not Detected (NotDetected); Phencyclidine (PCP) Not Detected (NotDetected); RBC/HPF None Seen HPF (0-3); Squamous Epithelial 0-3 HPF (0-3); THC/Cannabinoid Screen Not Detected (NotDetected); Tricyclic Screen Not Detected (NotDetected)
[2024-02-19 06:22] LABS: Urine Culture Reflex No No
[2024-02-19 06:41] LABS: Platelet Adequacy Comment PLT clumps seen-LOW; Platelet Clumps MODERATE
[2024-02-20 10:09] LABS: Actual Bicarbonate (HCO3a) 24.2 mEq/L (22-28); Analyzer IN Cardio CS ICU; Base Excess (BEa) -0.1 mEq/L (-2.0 to +3.0); CO2 Tension 38.4 mmHg (35.0-45.0); Calcium, Ionized (arterial) 1.15 mmol/L (1.12-1.30); Carboxyhemoglobin (COHb) 0.1 gm% (0.0-3.0); Hematocrit-ABG 36 % (42.0-52.0); Hemoglobin (Hb) 12.4 g/dL (14.0-18.0); O2 Tension (PaO2), arterial 69.3 mmHg (> 80.0); Puncture Site RRA; pH, Arterial 7.418 (7.35-7.45)
== END 2024-02-19 06:51 ==
LOC: EEVIPCON 03:55 → CSHERS 03:55
DX: R41.82 Altered mental status, unspecified (principal); E11.9 Type 2 diabetes mellitus without complications; I10 Essential (primary) hypertension; I25.10 Atherosclerotic heart disease of native coronary artery without angina pectoris; J44.9 Chronic obstructive pulmonary disease, unspecified; Z79.4 Long term (current) use of insulin; Z79.82 Long term (current) use of aspirin; Z79.899 Other long term (current) drug therapy; Z79.84 Long term (current) use of oral hypoglycemic drugs
CPT/HCPCS: 36415; 36600; 70450; 80053; 80306; 80307; 81001; 82140; 82805; 83735; 85025; 93005

== ENCOUNTER 2024-08-06 00:12 | Emergency (ER) | payer OTHER ==
[2024-08-06 01:07] LABS: #Basophils 0.03 10x3/uL (0.0-0.2); #Eosinophils 0.07 10x3/uL (0.0-0.5); #Monocytes 0.68 10x3/uL (0.0-1.1); #Neutrophils 4.94 10x3/uL (1.5-8.4); %Basophils 0.4 % (0.0-2.0); %Lymphocytes 21.5 % (18.0-47.0); %Monocytes 9.3 % (0.0-10.0); %Neutrophils 67.5 % (40.0-75.0); Hematocrit 38.7 % (38.8-50.0); Hemoglobin 13.1 g/dL (13.5-17.5); Mean Corpuscular HGB CONC 33.9 g/dL (32.0-36.0); Mean Corpuscular Hemoglobin 29.6 pg (27.0-33.0); Mean Corpuscular Volume 87.6 fL (81.2-95.1); Mean Platelet Volume 8.4 fL (7.4-10.4); Platelet Count 246 10x3/uL (150-450); Red Blood Cell (RBC) Count 4.42 10x6/uL (4.32-5.72); White Blood Cell (WBC) Count 7.3 10x3/uL (3.5-10.5)
[2024-08-06 01:21] LABS: ALT (SGPT) 8 U/L (8-55); AST (SGOT) 13 U/L (5-34); Albumin 3.4 g/dL (3.4-4.8); Alkaline Phosphatase 97 U/L (40-110); Anion Gap 14 mmol/L (10-20); BUN (Urea Nitrogen) 10 mg/dL (8.4-25.7); Bilirubin, Total 0.5 mg/dL (0.2-1.2); Calc. Creatinine Clearance 0 mL/min (70-130); Calcium 9.4 mg/dL (7.8-10.44); Carbon Dioxide 24 mmol/L (23-31); Chloride 97 mmol/L (98-107); Estimated GFR 97; Globulin 3.5 g/dL (2.4-3.5); Glucose 178 mg/dL (80-115); Potassium 4.1 mmol/L (3.5-5.1); Protein, Total 6.9 g/dL (5.8-8.1); Sodium 131 mmol/L (136-145)
[2024-08-06 01:22] LABS: Troponin I 0.022 ng/mL (< 0.028)
[2024-08-06 03:12] LABS: Troponin I 0.022 ng/mL (< 0.028)
== END 2024-08-06 04:00 ==
LOC: EEVIPCON 00:12 → CSHERS 00:12
DX: R07.89 Other chest pain (principal); I10 Essential (primary) hypertension; E11.9 Type 2 diabetes mellitus without complications; J44.9 Chronic obstructive pulmonary disease, unspecified; Z87.891 Personal history of nicotine dependence; Z79.84 Long term (current) use of oral hypoglycemic drugs; Z79.4 Long term (current) use of insulin; Z79.899 Other long term (current) drug therapy; Z86.73 Personal history of transient ischemic attack (TIA), and cerebral infarction without residual deficits; Z79.82 Long term (current) use of aspirin; Z79.02 Long term (current) use of antithrombotics/antiplatelets; Z79.51 Long term (current) use of inhaled steroids
CPT/HCPCS: 36415; 71045; 80053; 84484; 85025; 93005

== ENCOUNTER 2025-07-31 18:35 | Emergency (ER) | payer OTHER ==
[2025-07-31 20:44] LABS: ALT (SGPT) 7 U/L (Less than 45); AST (SGOT) 19 U/L (11-34); Albumin 3.6 g/dL (3.1-4.5); Alkaline Phosphatase 103 U/L (40-110); Anion Gap 13 mmol/L (10-20); BUN (Urea Nitrogen) 11 mg/dL (8.4-25.7); Bilirubin, Total 0.2 mg/dL (0.3-1.2); Calc. Creatinine Clearance 0 mL/min (70-130); Calcium 8.7 mg/dL (7.8-10.44); Carbon Dioxide 24 mmol/L (23-31); Chloride 101 mmol/L (98-107); Globulin 3.5 g/dL (2.4-3.5); Glucose 198 mg/dL (80-115); Potassium 4.1 mmol/L (3.5-5.1); Sodium 134 mmol/L (136-145)
[2025-07-31] MEDS ORDERED: Metoprolol Tartrate 5 MG (5 mL) VIAL ONE (21:04)
[2025-07-31 21:05] LABS: #Basophils 0.03 10x3/uL (0.0-0.2); #Eosinophils 0.12 10x3/uL (0.0-0.5); #Monocytes 0.57 10x3/uL (0.0-1.1); #Neutrophils 8.02 10x3/uL (1.5-8.4); %Basophils 0.3 % (0.0-2.0); %Eosinophils 1.2 % (0.0-6.0); %Lymphocytes 13.1 % (18.0-47.0); %Monocytes 5.6 % (0.0-10.0); %Neutrophils 79.3 % (40.0-75.0); Hematocrit 39.1 % (38.8-50.0); Hemoglobin 13.3 g/dL (13.5-17.5); Mean Corpuscular Hemoglobin 30.2 pg (27.0-33.0); Mean Corpuscular Volume 88.9 fL (81.2-95.1); Platelet Count 203 10x3/uL (150-450); Red Blood Cell (RBC) Count 4.40 10x6/uL (4.32-5.72); White Blood Cell (WBC) Count 10.12 10x3/uL (3.5-10.5)
[2025-07-31 21:14] LABS: INR-International Normal Ratio 1.0; PTT 26.8 sec (22.0-33.0); Prothrombin Time 10.9 sec (9.5-12.1)
[2025-07-31] MEDS ORDERED: Ondansetron PF 4 MG/2 ML Vial ONE (21:37)
[2025-08-01] MEDS ORDERED: Ondansetron PF 4 MG/2 ML Vial IVP PRN (00:51)
[2025-08-01] MEDS ORDERED: Acetaminophen 325 MG TAB PO PRN (00:51)
[2025-08-01] MEDS ORDERED: TETANUS, DIPHTHERIA TOX,ADULT (TDVAX) 0.5 ML VIAL IM ONE (00:51)
[2025-08-01] MEDS ORDERED: hydrALAZINE 20 MG/ML VIAL SLOW IVP PRN (00:51)
[2025-08-01] MEDS ORDERED: Famotidine/PF 20 mg/2ml Vial SLOW IVP SCH (09:00)
== END 2025-07-31 23:47 ==
LOC: CSHERS 18:35
DX: S06.6X0A Traumatic subarachnoid hemorrhage without loss of consciousness, initial encounter (principal); S06.5X0A Traumatic subdural hemorrhage without loss of consciousness, initial encounter; S06.360A Traumatic hemorrhage of cerebrum, unspecified, without loss of consciousness, initial encounter; T42.1X2A Poisoning by iminostilbenes, intentional self-harm, initial encounter; I25.10 Atherosclerotic heart disease of native coronary artery without angina pectoris; I11.0 Hypertensive heart disease with heart failure; I50.9 Heart failure, unspecified; E11.9 Type 2 diabetes mellitus without complications; W01.198A Fall on same level from slipping, tripping and stumbling with subsequent striking against other object, initial encounter; Z86.73 Personal history of transient ischemic attack (TIA), and cerebral infarction without residual deficits
CPT/HCPCS: 36415; 36430; 70450; 71045; 72125; 80053; 85025; 85610; 85730; 86850; 86900; 86901; 93005; 96374; 96375; J2270; J2405; P9035